=== PATIENT | male | born 1975 | race Caucasian/White ===

== ENCOUNTER 2020-09-11 16:16 | Emergency (ER) | payer SELFPAY ==
[~2020-09-11] VITALS: Ht 165.1 cm; Wt 78.0 kg
[2020-09-11 16:18] VITALS: BP 138/86
[2020-09-11] MEDS ORDERED: HALOPERIDOL LACTATE 5MG/ML VIAL IM STA (16:30)
[2020-09-11] MEDS ORDERED: LORAZEPAM 2MG/ML CPJ IM STA (16:30)
[2020-09-11 17:29] LABS: BASOPHILS % 0.6 % (0.0-2.0); EOSINOPHILS % 0.7 % (0.0-5.0); HEMATOCRIT. 35.4 % (42.0-52.0); HEMOGLOBIN. 12.1 g/dL (14.0-18.0); LYMPHOCYTES % 13.2 % (20.0-50.0); MEAN CORPUSCULAR HEMOGLOBIN 31.7 pg (28.0-32.0); MEAN CORPUSCULAR VOLUME 92.7 fL (80.0-94.0); MEAN PLATELET VOLUME 7.4 fl (7.4-10.4); MONOCYTES % 5.7 % (2.0-8.0); NEUTROPHILS % 79.8 % (40.0-76.0); PLATELET 219 x1000/uL (130-400); RED BLOOD CELL COUNT 3.82 mill/uL (4.7-6.1); RED CELL DISTRIBUTION WIDTH 13.6 % (11.6-14.6)
[2020-09-11 17:35] LABS: CHLORIDE 103 mEq/L (98-107)
[2020-09-11 17:39] LABS: ETHANOL BLOOD < 10 mg/dL
== END 2020-09-11 18:06 | disposition left against medical advice (07) ==
LOC: ER 16:16
DX: G93.89 Other specified disorders of brain (principal); R41.82 Altered mental status, unspecified; F10.10 Alcohol abuse, uncomplicated; Y90.0 Blood alcohol level of less than 20 mg/100 ml
CPT/HCPCS: 36415; 80053; 80320; 84484; 85025; 99284; G0480